=== PATIENT | male | born 1980 | race Caucasian/White ===

== ENCOUNTER 2024-12-18 03:50 | Emergency (ER) | payer OTHER ==
[~2024-12-18] VITALS: Ht 170.2 cm; Wt 68.0 kg
[~2024-12-18 03:50] MED LIST: KEFLEX500 MG PO
[2024-12-18] MEDS ORDERED: DOXYCYCLINE HYCLATE 100 MG HOME.PACK PO ONE (04:15)
[2024-12-18 04:17] VITALS: BP 143/98
== END 2024-12-18 04:15 | disposition home or self-care (01) ==
LOC: ED 03:50
DX: S00.86XA Insect bite (nonvenomous) of other part of head, initial encounter (principal); F17.200 Nicotine dependence, unspecified, uncomplicated; W57.XXXA Bitten or stung by nonvenomous insect and other nonvenomous arthropods, initial encounter
CPT/HCPCS: 99282; A9270